=== PATIENT | female | born 1965 | race Caucasian/White ===

== ENCOUNTER 2020-09-03 05:57 | Day surgery (SDC) | payer OTHER ==
[~2020-09-03] VITALS: Ht 170.2 cm; Wt 88.6 kg
[~2020-09-03 05:57] MED LIST: COZAAR100 MG PO; EDLUAR10 MG SL; HYDROCHLOROTHIA25 MG PO
--- NOTE | 2020-09-03 08:54 | NUR ---
PT ALERT, ORIENTED AND SUPPORTED BY FAMILY. PT SEEMS AT EASE, ALL QUESTIONS ASKED ANSWERED. PT DID REQUEST PRAYER. WILL FOLLOW NEEDED
--- NOTE | 2020-09-03 08:55 | NUR ---
09/03/20 0855 Daya Freeman 0806 PT ARRIVED IN PACU SLEEPY WITH NO C/O'S. 0815 AT BEDSIDE TALKING WITH PT. ALL QUESTIONS ANSWERED. 0830 UP TO BR WITH ASSISTANCE. VOIDED. BACK AT BEDSIDE GETTING DRESSED. 0843 DC INSTRUCTIONS GIVEN. LEFT VIA W/C.
--- NOTE | 2020-09-04 11:41 | OR ---
[facility] [address] [place], [place] [address] Signed DATE OF OPERATION: 09/03/2020 SURGEON: Michael Solorzano DO PROCEDURE: Hysteroscopy, D and C with polypectomy. PREOPERATIVE DIAGNOSIS: Postmenopausal bleeding. POSTOPERATIVE DIAGNOSIS: Postmenopausal bleeding, uterine polyps. BLOOD LOSS: 5 mL. LINES: None. DRAINS: None. COMPLICATIONS: None. ANESTHESIA: Monitored anesthesia care. INDICATION: The patient is a 55-year-old female referred to me by her PCP for cervical polyps. Polypectomy was performed in the office without complication, however, two weeks postop the patient began having sudden onset of moderate flow of vaginal bleeding. Pelvic ultrasound was performed, revealed a fibroid uterus with thickened endometrial stripe. Risks, benefits, and alternatives to hysteroscopy, D and C with possible polypectomy were reviewed with the patient. She elected to proceed with procedure in the OR due to recent history of discomfort at the time of polypectomy in office. DESCRIPTION OF PROCEDURE: The patient was taken back to the OR where she was placed under monitored anesthesia Electronically Signed By: MICHAEL SOLORZANO DO 09/04/20 1141 PATIENT NAME: TRINI RICHARDSON OPERATIVE REPORT DATE OF : 69 REPORT #: [id number] PHYSICIAN: MICHAEL SOLORZANO DO PCP: GUADALUPE FRIEDMAN MD REPORT IS CONFIDENTIAL AND NOT TO BE RELEASED WITHOUT AUTHORIZATION [facility] [address] [place] [address] Signed care and positioned in dorsal lithotomy with Yellofin stirrups. She was prepped and draped in the normal sterile fashion. Weighted speculum was placed in the vagina and the anterior lip of the cervix was grasped with the Allis clamp in the 12 o'clock position. The cervix was easily gently sounded with Hegar dilators to accommodate 6 mm scope. The scope was easily inserted with excellent visualization of the endocervical canal and endometrium was surveyed with findings as noted below. MyoSure device was used to perform first polypectomy, then circumferential endometrial curettage under excellent direct visualization. These were submitted to pathology as a single sample. Upon removal of the scope, cervical canal was again reinspected. No areas of bleeding or polypoid tissue were noted. Sponge and instrument counts were correct x2. The patient was taken to recovery room in stable and satisfactory condition. FINDINGS: Atrophic appearing endometrial cavity, bilateral tubal ostia visualized, small broad-based polypoid area in the posterior left fundal region. DO JUIH HowardZ/MODL /[id number] Copies: ~ Electronically Signed By: MICHAEL SOLORZANO DO 09/04/20 1141 PATIENT NAME: TRINI RICHARDSON OPERATIVE REPORT DATE OF : 69 REPORT #: [id number] PHYSICIAN: MICHAEL SOLORZANO DO PCP: GUADALUPE FRIEDAMN MD REPORT IS CONFIDENTIAL AND NOT TO BE RELEASED WITHOUT AUTHORIZATION
--- NOTE | 2020-09-05 13:40 | PATH ---
[facility] [address] [place], [place] [address] Signed SPECIMEN(S): A ENDOMETRIAL CURETTINGS SPECIMEN SOURCE: A. ENDOMETRIAL CURETTINGS CLINICAL HISTORY: Postmenopausal bleeding; uterine leiomyomata; endometrial thickening. FINAL PATHOLOGIC DIAGNOSIS: Endometrium, curettage: - Fragmented endometrial polyp(s). - Mildly disordered proliferative endometrium with minimal chronic endometritis. - Superficial adenomyosis. - Negative for atypia or malignancy. DS:amirah:C2NR MICROSCOPIC EXAMINATION: Histologic sections of all submitted blocks are examined by light microscopy. These findings, together with the gross examination, support the pathologic diagnosis. GROSS DESCRIPTION: The specimen, labeled "KH, endometrial curettings," is received in formalin and consists of irregular shaped membranous and hemorrhagic tissue fragments that aggregate measure 3.0 x 2.2 x 0.2 cm. Specimen is entirely submitted in cassette (A1). JS (under the direct supervision of a pathologist) The Gross Description was prepared using a voice recognition system. The report was reviewed for accuracy; however, sound-alike word errors, addition and/or deletions may occur. If there is any question about this report, please contact Client Services. PERFORMING LABORATORY: The technical component was performed by [facility], [address] [place] [id number] (Fur Cleaner: Aniyah Chatterjee MD; CLIA# [id number]). Professional interpretation was performed by [facility], [facility], [address] [place] [id number] (CLIA#: [id number]). Diagnostician: Victorino Santillan MD PATIENT NAME: TRINI RICHARDSON PATHOLOGY DATE OF : 69 REPORT #: [id number] PHYSICIAN: [facility] PCP: GUADALUPE FRIEDMAN MD REPORT IS CONFIDENTIAL AND NOT TO BE RELEASED WITHOUT AUTHORIZATION [address] [place], [place] [address] Signed Pathologist Electronically Signed 09/05/2020 Copies: ~ PATIENT NAME: TRINI RICHARDSON PATHOLOGY DATE OF : 69 REPORT #: [id number] PHYSICIAN: [facility] PCP: GUADALUPE FRIEDMAN MD REPORT IS CONFIDENTIAL AND NOT TO BE RELEASED WITHOUT AUTHORIZATION
== END 2020-09-03 08:47 | disposition home or self-care (01) ==
LOC: OPS 05:57 → DS 05:57 → OPS 06:45
PROVIDERS: ATTEND Obstetrics & Gynecology
PROC: 0UB98ZZ Excision of Uterus, Via Natural or Artificial Opening Endoscopic (ICD-10-PCS; principal; 2020-09-03 06:45)
DX: N84.0 Polyp of corpus uteri (principal); D25.9 Leiomyoma of uterus, unspecified; N71.1 Chronic inflammatory disease of uterus; N80.0 Endometriosis of uterus; I10 Essential (primary) hypertension
CPT/HCPCS: 00952; 88305; J1100; J1885; J2001; J2250; J2405; J2704; J7121

== ENCOUNTER 2021-10-04 11:16 | Emergency (ER) | payer OTHER ==
[~2021-10-04] VITALS: Ht 170.2 cm; Wt 92.7 kg
--- OUTSIDE RECORDS SUMMARY | 2021-10-04 11:18 | XMS ---
PreManage Notification: TRINI RICHARDSON Security Resource Specialist Events No recent Security Events currently on file [facility] There are no care providers on record at this time. Yara has no Care Guidelines for this patient. Rose VISIT COUNT (12 MO.) 1 LETICIA [facility] TOTAL 1 NOTE: Visits indicate total known visits. ED/C VISIT TRACKING (12 MO.) 10/04/2021 11:17 [facility] [place] TYPE: Emergency COMPLAINT: - ANIMAL BITE INPATIENT VISIT TRACKING (12 MO.) No inpatient visits to display in this time frame [id number]
[2021-10-04] MEDS ORDERED: TELMISARTAN80 MG PO (12:37)
[2021-10-04] MEDS ORDERED: AMOX TR-K CLV1 EAC1 PO (13:44)
== END 2021-10-04 14:04 | disposition home or self-care (01) ==
LOC: ED 11:16
DX: S61.051A Open bite of right thumb without damage to nail, initial encounter (principal); L08.9 Local infection of the skin and subcutaneous tissue, unspecified; W54.0XXA Bitten by dog, initial encounter; I10 Essential (primary) hypertension; Z23 Encounter for immunization; Z88.5 Allergy status to narcotic agent; Z79.899 Other long term (current) drug therapy
CPT/HCPCS: 90471; 90715; 99283-25

== ENCOUNTER 2021-11-09 11:29 | Emergency (ER) | payer OTHER ==
[~2021-11-09] VITALS: Ht 170.2 cm; Wt 93.6 kg
[~2021-11-09 11:29] MED LIST changes: +AMOX TR-K CLV1 EAC1 PO; +TELMISARTAN80 MG PO
--- OUTSIDE RECORDS SUMMARY | 2021-11-09 11:32 | XMS ---
PreManage Notification: TRINI RICHARDSON Security Network Operations Project Manager Events No recent Security Events currently on file [facility] There are no care providers on record at this time. Yara has no Care Guidelines for this patient. Rose VISIT COUNT (12 MO.) 2 LETICIA [place] TOTAL 2 NOTE: Visits indicate total known visits. ED/UCC VISIT TRACKING (12 MO.) 11/09/2021 11:30 [facility] [place] TYPE: Emergency COMPLAINT: - RT THIGH INJURY 10/04/2021 11:17 [facility] [place] TYPE: Emergency COMPLAINT: - ANIMAL BITE DIAGNOSES: - Local infection of the skin and subcutaneous tissue, unspecified - Bitten by dog, initial encounter - Open bite of right thumb without damage to nail, initial encounter - Allergy status to narcotic agent - Other termite control technician (current) drug therapy - Encounter for immunization - Open bite of right thumb without damage to nail, initial encounter - Essential (primary) hypertension INPATIENT VISIT TRACKING (12 MO.) No inpatient visits to display in this time frame [id number]
== END 2021-11-09 12:40 | disposition home or self-care (01) ==
LOC: ED 11:29
DX: S70.11XA Contusion of right thigh, initial encounter (principal); I10 Essential (primary) hypertension; Z88.5 Allergy status to narcotic agent; Z79.899 Other long term (current) drug therapy; W22.8XXA Striking against or struck by other objects, initial encounter
CPT/HCPCS: 73552; 99283-25

== ENCOUNTER 2021-12-03 13:32 | Inpatient (IN) | payer OTHER ==
[~2021-12-03] VITALS: Ht 170.2 cm; Wt 96.0 kg
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
[2021-12-03] MEDS ORDERED: SUDOGEST60 MG PO (14:29)
[2021-12-03] MEDS ORDERED: FLUOXETINE HCL20 M1 PO (14:29)
[2021-12-03] MEDS ORDERED: ZOLPIDEM TARTRA10 MG PO (17:00)
--- NOTE | 2021-12-03 17:10 | NUR ---
12/03/21 1710 Harini Childs 1649: PT ARRIVES TO PACU FROM OR AWAKE AND ALERT WITH EYES OPEN ON 6L O2 VIA MASK. PT ABLE TO FOLLOW COMMANDS AND STATE NAME WHEN ASKED. LEWIS DRAIN TO LEFT BREAST NOT HOLDING SUCTION AND PLACED TO LOW WALL SUCTION PER MD VERBAL ORDERS AT BEDSIDE. CHRISTINA MORRISON AT BEDSIDE WITH VERBAL REPORT. PT DENIES NAUSEA AND RATES PAIN 2-3/10 WHEN ASKED. 1700: SATS 100% WITH MASK IN PLACE, REMOVED AT THIS TIME. PT ENCOURAGED TO COUGH AND TAKE BREATHS.
--- NOTE | 2021-12-03 17:45 | NUR ---
Pt arrives to medical floor from PACU. Pt A+O, on room air. CPOX in place, SPO2 91-95%. Dressings to chest wounds inspected, covered with actecote, gauze, surgical coverings. All C/D/I with no drainage noted. LEWIS drain to L chest wall connected to low wall suction per order, draining small amount serous fluid. Pt denies discomfort with drain/suction set up. Bruising noted around surgical sites. Ice pack applied for comfort. IVF infusing at 85 to L arm IV. Pt rates current pain at 6/10. PRN toradol administered and education provided. Dressing to L leg visualized, EMY wrap in place, no drainage noted, C/D/I. SCDs to bilateral feet in place. VSS. Pt family at bedside. 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
--- NOTE | 2021-12-03 18:35 | NUR ---
Call light answered, pt requests to use BR. 1PA, d/t IVF tubing, CPOX, and LEWIS drain and suction tubing. Pt has steady gait. Voided 200ml and missed the hat x1. Back to bed, family at bedside.
--- NOTE | 2021-12-03 19:34 | NUR ---
pt was c/o no relief from toradol med given earlier. medicated with dilaudid 2mg po. can receive up to 2 tabs, choose to get 1-2mg po and will wait to see if it works. Pt on room air. mid chest dressing with surgical tape/gauze/opticot covered with opsite and more gauze over L low chest LEWIS to LIWS, draining sanguineous colored drainage.. dressing with old drainage specially at both ends of breasts. tender to touch. SL RFA and IVf infsing L arm. tolerating liquids well, hob elevated, cpox in place. foot scds in place alert and oriented. family in room. call light at hands reach
--- NOTE | 2021-12-03 19:34 | NUR ---
pt c/o midchest incisinal pain, medicated with dilaudid 2mg po. ivf infusing lfa, sl ra patent. dressing upper chest intact, bebeto to caty
--- NOTE | 2021-12-03 20:01 | NUR ---
- Pt awake, room air, cpox in place, no chjanges in mid chest dressing. IVF infusing. c/o no relief from dilaudi. medicated with second dose of 2mg Dilaudid. coop with assessment. on room air, dressing with old drainge, LEWIS to LIWS draining sanguineous drainage. lungs clear dim at bases, abd soft, large hos LBM this am. trace edema to hands and ankles, foot scds in place. pleasant and coop. tolerating liquids well. uses call allison, family in room
--- NOTE | 2021-12-03 20:05 | NUR ---
IN TO GET VITALS WITH RN, CLEAN URINE HAT PLACED IN TOILET WITH SAMPLE CUP NEARBY, NO FURTHER NEEDS AT THIS TIME
--- NOTE | 2021-12-03 21:54 | NUR ---
pt awake, stated mild comfort from pain med given earlier. 09/26. IVF infusing, dressing mid chest with old drainage bebeto to LIWS patent draining sanguineous drainage. tolerating liquids well, no emesis. hob elevated to comfort. call light at hands reach
--- NOTE | 2021-12-03 23:38 | NUR ---
PT ASSISTED TO THE TOILET SBA, URINE SAMPLE TAKEN AND SENT TO LAB, PT BACK TO BED, ICE WATER AND ICE PACK PROVIDED
--- NOTE | 2021-12-04 00:05 | NUR ---
awake, watchnt tv. c/o 10/26 mid chest pain, medicated with toradol iv
--- NOTE | 2021-12-04 01:23 | NUR ---
AWAKE, WATCHING TV, ON ROOM AIR, IVF INFUSING.LEWIS TO GELA. FAMILY INROOM
--- NOTE | 2021-12-04 02:04 | NUR ---
pT AWAKE, WATCHING TV, ON ROOM AIR, COOP WTIHA SSESSMENT, LUNGS CLEAR BILAT, MID CHEST DRESSING WITH OLD DRAINAGE IN PLACE. REDNESS BETWEEN UPPER BREAST AREA. L BREAST AREA LEWIS TO LIWS, DRAINING SANGUINEOUS DRAINAGE.IVF INFUSING W/O PROBLEMS. C/O 7/0 MID CHEST AND L KNEE AREA DRESSING. MEDICATED WITH 4MG DILAUDID PO. ICE TO MID CHEST. ABD SOFT, SCDS IN PLACE. TOLERATING LIQUDIS WELL. CALL LIGHT AT HANDSA REACH. FAMILY AT BEDSIDE
--- NOTE | 2021-12-04 04:18 | NUR ---
awake, watching tv, has not sleep this shift, "I take ambien at night". staed fair pain relief. L breast LEWIS patent to LWS. ivf infusing w/o problems. call lineot and donnaa t bedside, family rooming in
--- NOTE | 2021-12-04 06:09 | NUR ---
pt medicated with motrin 600mg po c/o 09/26 chest and L leg. IVF infusing w/o problems LEWIS to LWS
--- NOTE | 2021-12-04 06:14 | NUR ---
Pt onroom air, lungs clear dim at bases, started dry non productive cough this am. post op CPOX dc'd at this time. Mid chest dressing with old drainage, gauze,surgical tape, oticot covered with Opsite. L low breast area LEWIS to low wall suction draining small amouont of sanguineous drainage. dressing to L knee area intact. Has been medicated with Toradol x1, Dilaudid 4mg po X2, Motrin 600mg po X1 per pain, fait fair relief. Ice to chest area. has not slept this shift.SL and IVf infusing w/o problems, no c/o adverse reaction to abx. has tolerated liquids well. Up to br with 1PA, tolerating well, voiding QS.Alert, oriented, pleasant and cooperative. uses call light family in room
--- NOTE | 2021-12-04 07:45 | NUR ---
REPORT RECEIVED FROM NIGHT RN AND PT. CARE RESUMED. PT. DENIES NEEDS AT THIS TIME. SHE IS ALERT AND SON AT BEDSIDE.
--- NOTE | 2021-12-04 07:53 | NUR ---
PT CALL LIGHT ON. PT REQUESTS ASSISTANCE UP TO RESTROOM. SUCTION CLAMPED. NON SKID SOCKS APPLIED. STAND BY ASSIST UP TO RESTROOM. FOR LINE AND TUBE MANAGEMENT. PT VOIDS WITHOUT ISSUE. STAND BY ASSIST BACK TO BED. SUCTION TO LEWIS DRAIN REAPPLIED, SETTINGS UNCHANGED. PT REPORTS PAIN AT 5/10 THAT IS WELL CONTROLLED, PT DENIES NEED FOR ADDITIONAL PAIN MEDICATION AT THIS TIME. PT REQUEST A BREAK FROM FOOT PUMPS, EDUCATION DONE WITH PT REGARDING AMBULATION. PT AGREES TO AMBULATE AND GET OUT OF BED TODAY. PT SITTING ON EDGE OF BED. NO ADDITIONAL REQUESTS OR COMPLAINTS. CALL LIGHT WITHIN REACH. BED RAILS UP.
--- NOTE | 2021-12-04 08:30 | NUR ---
REPORT RECEIVED FROM NIGHT RN AND PT. CARE RESUMED. PT. IS ALERT AND ORIENTED. SHE C/O /10 PAIN AT CHEST WOUND SITE THAT IS SHARP. ADMIN. DILAUDID PO. CHEST DRESSINGS ARE DRY AND INTACT WITH SHADOWING ON THE ACTICOAT DRESSING. LEWIS DRAIN CONNECTED TO LOW SUCTION AND DRAINING SANGUINOUS FLUID. SHE DENIES NAUSEA OR SOB. ASSESSMENT COMPLETED. PT. EATING AND DRINKING WELL. SHE REPORTS FEELING LIGHT HEADED WHEN FIRST STANDING. DISCUSSED AMBULATING THIS MORNING AND POC. LEFT RESTING WITH CALL LIGHT IN REACH.
[2021-12-04] MEDS ORDERED: KRILL OIL 1,001 EACH PO (09:25)
[2021-12-04] MEDS ORDERED: MULTI VITAMIN1 EACH PO (09:25)
--- NOTE | 2021-12-04 09:26 | NUR ---
MED REC COMPLETE
--- NOTE | 2021-12-04 10:20 | NUR ---
PT. AMBULATED WITH SBA 2X AROUND THE UNIT AND TOLERATED WELL. SHE REPORTS CHEST WOUND PAIN IMPRVOED WITH AMBULATION. LEFT RESTING WITH CALL LIGHT IN REACH.
--- NOTE | 2021-12-04 11:06 | NUR ---
It was a pleasure to visit with Toya today regarding her care here in the hospital and her discharge plan. Toya relates that her care has been "very good" she feels that she is getting good pain managment and she denies questions or concerns regarding her care. Toya denies concerns with being discharged to home and she feels that between herself and her adult children she will be able to have all of her home care needs met. She denies dificulty with being able to fill prescriptions, obtain food, or pay utility bills, etc. Toya denies questions or concerns at this time.
--- NOTE | 2021-12-04 12:53 | NUR ---
DR VIVAS IN WITH PT. CONNECTED WITH SON LUCY IN [place]. GAVE ENCOURAGEMENT, SAID HE HAS QUESTIONS THAT I CANNOT HELP WITH. WILL FOLLOW
--- NOTE | 2021-12-04 12:58 | NUR ---
PT CALL LIGHT ON. PT REQUESTS ASSISTANCE UP TO RESTROOM. STAND BY ASSIST UP TO RESTROOM. PT VOIDS 600ML CLEAR YELLOW URINE. STAND BY ASSIST BACK TO BED. FRESH ICE PACK PROVIDED. ICE WATER REFILLED. CALL LIGHT WITH IN REACH. NO ADDIITONAL REQUESTS AT THIS TIME.
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
--- NOTE | 2021-12-04 15:03 | NUR ---
CHEST WOUNDS DRESSED WITH ACTICOAT. PT. TOLERATED WELL. INCISION SITES ARE DRY AND CLEAN. LEWIS DRAIN IS PATENT. NO DRAINAGE ON LEFT LEG DRESSING. BROUGHT ICE. LEFT RESTING WITH CALL LIGHT IN REACH.
--- NOTE | 2021-12-04 17:54 | NUR ---
ROUNDING ON PT. SHE DENIES PAIN OR NEEDS AT THIS TIME.
--- NOTE | 2021-12-04 18:13 | NUR ---
PT VITALS TAKEN, I& O"S DOCUMETNED. PT WAS NOT WANTING TO EAT WHAT THEY SERVED FOR DINNER IT WAS "UNAPPITISING" TO HER. STATED I COULD CALL TO KITCHEN AND SEE IF THERE WAS ANYTHING ELSE. EMPTIED LEWIS DRAIN. NO OTHER REQUESTS AT THIS TIME. CALL LIGHT IN REACH. PT SITTING UP IN BED WATCHING TV/BRAINREPUBLIC WORD GAMES.
--- NOTE | 2021-12-04 19:20 | NUR ---
PT WALKING HALLWAYS, NO C/O PAIN, NO REQUESTS, DRESSING TO L KNEE INTACT.
--- NOTE | 2021-12-04 21:50 | NUR ---
PT SITTING UP IN BED. ROOM AIR, COOP WITH ASSESSMENT, LUNGS CLEAR BILAT. 2 SL PATENT. MEDICATED IWTH MOTRIN 600MG PO PRIOR TO CHANGING SOAKED GAUZE FROM MID CHEST DRESSING AT HER REQUETS/ COOPERATIVE. GAUZE AT BOTH ENDS R BREAST AND LEFT BREAST CHANGED AT HER REQUESTS, SOAKED IN SS DRAINAGE. COVERED WITH OPSITE. 2 OPTICOT MID CENTER OF CHEST, LEWIS BELOW L BREAT PATENT WITH SANGUINEOUS DRAINGE, INSERTION SITE A LITTLE RED AT INSERTIN SITE, SUTURES PATENT. NO DRAINAGE. L KNEE EMY WRAP OVER GAUZE, MOVES ALL EXTREMITIES WELL. LIGHT DISCOMOFRT L KNEE POST OP WOUND AREA. INDEPENDENT INROOM, TOOK AMBIEN HER USUAL AT HOME, BED ALRM ON PER SAFETY TONIGHT. ALERT, ORINETED, COOPERATIVE. PLEASANT, FOLLOWS INSTRUCTIONS. BED ALARM AND FLUIDS AT HANDS REACH
--- NOTE | 2021-12-04 23:58 | NUR ---
RESTING, NO FURTHER C/O PAIN. BED ALARM ON FOR SAFETY, CLL LIGHT AND FLUIDS AT HANDS REACH.
--- NOTE | 2021-12-05 01:32 | NUR ---
In bed hob elevated to comfort. call light and fluids at hands reach. Bed alrm on tonight for safety.
--- NOTE | 2021-12-05 03:40 | NUR ---
Resting, no distress, on room air, eyes closed, call light and fluids at bedside
--- NOTE | 2021-12-05 04:38 | NUR ---
Pt has slept this shift. on room air, was medicated with motrin earlier on shift per mid chest and L leg pain. dressing mid chest w opticot in place, old drainage. gauze to both end changed due to large amunt of saturation. and pts requests. bebeto patent. will teach care. L leg gauze/kerliz and chanda wrap in place. independent in room. cooperative. pleasant, alert and oriented, use scall light. Received ambien-chronic use at home, very effective.
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
--- NOTE | 2021-12-05 10:45 | NUR ---
Spoke with Toya. She would like to go home today if possible. I asked about counseling as her RN had reported she had a panic attack this am. She would like to see a counselor and I will and check for an appt. Called [facility] and she states they and other programs in [place] and [place] are not accepting any new pts. She gave me the number and web site for [facility] [place] that do telehealth appts. [employer] [phone]. I also called two places in [place] and listened to their message stating they also are not taking pts currently.
--- NOTE | 2021-12-05 11:15 | NUR ---
To room and gave Toya the number and email for [facility]. Pts daughter in the room and will take pt home. Dr. Moore in the room giving pt discharge instructions. Pt denies any needs for dc.
[2021-12-05] MEDS ORDERED: ACETAMINOPHEN500 MG PO (13:08)
[2021-12-05] MEDS ORDERED: IBUPROFEN600 MG PO (13:08)
--- NOTE | 2021-12-05 13:22 | NUR ---
OFFICER ELIZABETH ARRIVED TO SPEAK WITH PT. PT STATES SHE IS WILLING TO TALK WITH HIM AND THIS IS A GOOD TIME. OFFICER ELIZABETH ESCORTED TO ROOM AND IS VISITING WITH PT.
[2021-12-05] MEDS ORDERED: HYDROXYZINE HCL25 MG PO (14:55)
--- NOTE | 2021-12-05 15:29 | EKG ---
[facility] [address] [facility] [place] [address] Signed Normal sinus rhythm Normal ECG No previous ECGs available Confirmed by KRYS GRANT MD ([id number]) on 12/05/2021 3:28:50 PM Electronically Signed By: KRYS GRANT MD 12/05/21 1529 PATIENT NAME: TRINI RICHARDSON ROX Electrocardiogram DATE OF : 69 PHYSICIAN: KRYS GRANT MD REPORT #: [id number] REPORT IS CONFIDENTIAL AND NOT TO BE RELEASED WITHOUT AUTHORIZATION
--- NOTE | 2021-12-05 16:30 | NUR ---
ALL DISCHARGE INSTRUCTIONS REVIEWED WITH PT. AND SHE LEFT WITH ALL BELONGINGS. IVS X2 REMOVED WITH CATH INTACT.
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
== END 2021-12-05 16:30 | disposition home or self-care (01) | DRG 571 ==
LOC: ED 13:32 → MS 13:33
PROVIDERS: ADMIT Surgery; ATTEND Surgery
PROC: 0JB60ZZ Excision of Chest Subcutaneous Tissue and Fascia, Open Approach (ICD-10-PCS; 2021-12-03)
PROC: 0HCU0ZZ Extirpation of Matter from Left Breast, Open Approach (ICD-10-PCS; 2021-12-03)
PROC: 0H9U00Z Drainage of Left Breast with Drainage Device, Open Approach (ICD-10-PCS; 2021-12-03)
PROC: 0JBM0ZZ Excision of Left Upper Leg Subcutaneous Tissue and Fascia, Open Approach (ICD-10-PCS; principal; 2021-12-03 15:30)
DX: S21.032A Puncture wound without foreign body of left breast, initial encounter (principal); S27.321A Contusion of lung, unilateral, initial encounter; S21.031A Puncture wound without foreign body of right breast, initial encounter; S71.132A Puncture wound without foreign body, left thigh, initial encounter; X95.9XXA Assault by unspecified firearm discharge, initial encounter; F41.9 Anxiety disorder, unspecified; Z20.822 Contact with and (suspected) exposure to COVID-19; I10 Essential (primary) hypertension; Z88.5 Allergy status to narcotic agent; Z79.899 Other long term (current) drug therapy; Z98.890 Other specified postprocedural states; Z88.8 Allergy status to other drugs, medicaments and biological substances
CPT/HCPCS: 00400; 36415; 71045; 71260; 73552; 74177; 80053; 83605; 84702; 85025; 86850; 86900; 86901; 87502; 93005; 93010; 94760; 94762; 99285-25; A9270; C9803; G0480; J0131; J0330; J0690; J1100; J1170; J1885; J2001; J2250; J2405; J2704; J3010; J7121; Q9967; U0003